=== PATIENT | male | born 1935 | race Caucasian/White ===

== ENCOUNTER → 2017-06-22 | Outpatient (CLI) | payer OTHER ==
[2017-06-22 14:13] LABS: ALBUMIN 3.6 g/dL (3.4-5.0); DIRECT BILIRUBIN 0.2 mg/dL (<0.1-0.3); TOTAL BILIRUBIN 0.8 mg/dL (<0.1-1.0); TOTAL PROTEIN 7.3 g/dL (6.4-8.2)
== END ==
LOC: M.LAB 13:34
PROVIDERS: Internal Medicine Cardiovascular Disease
DX: I48.0 Paroxysmal atrial fibrillation (principal); Z79.899 Other long term (current) drug therapy

== ENCOUNTER → 2017-12-13 | Outpatient (CLI) | payer OTHER ==
[2017-12-13 12:54] LABS: ALBUMIN 3.7 g/dL (3.4-5.0); DIRECT BILIRUBIN 0.2 mg/dL (<0.1-0.3); TOTAL BILIRUBIN 0.7 mg/dL (<0.1-1.0); TOTAL PROTEIN 7.3 g/dL (6.4-8.2)
== END ==
LOC: M.LAB 12:09
PROVIDERS: Internal Medicine Cardiovascular Disease
DX: M47.814 Spondylosis without myelopathy or radiculopathy, thoracic region (principal); Z79.899 Other long term (current) drug therapy

== ENCOUNTER → 2018-07-09 | Outpatient (CLI) | payer OTHER ==
[2018-07-09 12:48] LABS: ALBUMIN 3.4 g/dL (3.4-5.0); DIRECT BILIRUBIN 0.2 mg/dL (<0.1-0.3); TOTAL BILIRUBIN 0.8 mg/dL (<0.1-1.0); TOTAL PROTEIN 7.1 g/dL (6.4-8.2)
== END ==
LOC: M.LAB 12:06
PROVIDERS: Internal Medicine Cardiovascular Disease
DX: Z79.899 Other long term (current) drug therapy (principal)

== ENCOUNTER → 2019-10-31 | Outpatient (CLI) | payer OTHER ==
[2019-10-31 12:36] LABS: ALBUMIN 3.5 g/dL (3.4-5.0); DIRECT BILIRUBIN 0.2 mg/dL (<0.1-0.3); TOTAL BILIRUBIN 0.7 mg/dL (<0.1-1.0)
== END ==
LOC: M.RAD 11:14
PROVIDERS: ATTEND Internal Medicine Cardiovascular Disease
DX: Z79.899 Other long term (current) drug therapy (principal)

== ENCOUNTER → 2020-10-20 | Outpatient (CLI) | payer OTHER ==
[2020-10-20 14:25] LABS: ALBUMIN 3.4 g/dL (3.4-5.0); DIRECT BILIRUBIN 0.1 mg/dL (<0.1-0.3); TOTAL BILIRUBIN 0.6 mg/dL (<0.1-1.0); TOTAL PROTEIN 7.3 g/dL (6.4-8.2)
== END ==
LOC: M.LAB 12:18
PROVIDERS: ATTEND Internal Medicine Cardiovascular Disease
DX: J84.9 Interstitial pulmonary disease, unspecified (principal); I48.0 Paroxysmal atrial fibrillation; I10 Essential (primary) hypertension; Z79.899 Other long term (current) drug therapy